=== PATIENT | male | born 1940 | race Caucasian/White ===

== ENCOUNTER 2016-10-19 17:46 | Inpatient (IN) | payer MEDICARE, OTHER ==
--- NOTE | ~2016-10-19 | EKG ---
PATIENT: CHARLES GUTIERREZ UNIT #: [id number] Ventricular Rate: 89 BPM Atrial Rate: 89 BPM P-R Interval: 138 ms QRS Duration: 120 ms Q-T Interval: 358 ms QTC Calculation(Bezet): 435 ms P [place]: 73 degrees Calculated R [place]: 92 degrees Calculated T [place]: 2 degrees Diagnosis Line: Normal sinus rhythm Diagnosis Line: Right bundle branch block Diagnosis Line: Nonspecific T wave abnormality Diagnosis Line: Abnormal ECG Diagnosis Line: When compared with ECG of 20-OCT-2016 12:32, Diagnosis Line: (unconfirmed) Diagnosis Line: Nonspecific T wave abnormality now evident in Diagnosis Line: Inferior leads Diagnosis Line: Confirmed by TAOV SIDDIQUI MD ([id number]) on Diagnosis Line: 10/21/2016 11:19:39 PM INTERPRETING MD: CHALINO
--- NOTE | ~2016-10-19 | EKG ---
PATIENT: CHARLES GUTIERREZ UNIT #: [id number] Ventricular Rate: 81 BPM Atrial Rate: 81 BPM P-R Interval: 128 ms QRS Duration: 128 ms Q-T Interval: 414 ms QTC Calculation(Bezet): 480 ms P [place]: 63 degrees Calculated R [place]: 86 degrees Calculated T [place]: 63 degrees Diagnosis Line: Normal sinus rhythm Diagnosis Line: Right bundle branch block Diagnosis Line: Marked T wave abnormality, consider anterolateral Diagnosis Line: ischemia Diagnosis Line: Abnormal ECG Diagnosis Line: When compared with ECG of 21-OCT-2016 05:39, Diagnosis Line: No significant change was found Diagnosis Line: Confirmed by TAVO SIDDIQUI MD ([id number]) on Diagnosis Line: 10/23/2016 8:49:59 AM INTERPRETING MD: CHALINO
--- NOTE | ~2016-10-19 | HP ---
Unit #: [id number] #: [id number] Patient: CHARLES GUTIERREZ [id number] [facility]. [place], [place] [address] [id number] I MR#: [id number] NAME: CHARLES GUTIERREZ ROOM: 4 Age: 76 Sex: M Admission Date: 10/19/2016 : 1940 Attending Physician: John Hinojosa M.D. Primary Care Physician: No Primary Care Physician HISTORY AND PHYSICAL HISTORY OF PRESENT ILLNESS This is a 76-year-old white male known to have a lateral wall non-ST elevated MN back in 2012. Dr. Hinojosa did his heart catheterization at that time. The patient was also, back in 2012, diagnosed with new hypertension. He also was noted to have a right bundle branch block on his EKG and hyperlipidemia. On the heart catheterization performed at that time, Dr. Hinojosa, performed a PCI and stent placed to the first diagonal branch of the LAD. He also had an unsuccessful angioplasty of the circumflex coronary artery which was found to have a 99.9% distal of the first marginal branch stenosis. The patient had been doing well up to this admission. He goes to [place] to see a commercial green building designer at the [facility] there. He used [place] state. The last time he has been was almost a year ago. He has been following a commercial green building designer there but, since his angioplasty and stenting, he has not had a stress test or another heart catheterization. The patient a couple of nights ago went to bed and just felt some discomfort in his chest. He said it felt more like a tightness. He was uncomfortable. He got a little clammy. He took a whole aspirin 325 mg. He laid back down and finally went to sleep. He got up yesterday morning feeling well and then throughout the day he was doing fair and then, in the afternoon, he started having the same substernal chest tightness. He got clammy. He took his blood pressure at home and it was a little high. He said he has a little shortness of breath with exertion but that is not always unusual. He denied any dizziness, palpitations. He denied any nausea, vomiting. He denied that the discomfort radiated up to the neck, bilateral jaw, shoulders, arms or elbow. No abdominal or back pain. In the emergency room, the patient's blood pressure was 138/84, heart rate 88, respiration 16, temperature 98.2. The patient's chest x-ray showed some opacity in the left lung base and could possibly concern for a hiatal hernia or less likely a left lower lobe cavitary process. The patient's EKG showed sinus rhythm. He does have a right bundle branch block and some nonspecific ST-T wave abnormalities in inferior anterolateral leads. His CK MB was 37.2 with troponin of 0.2 and, later, his CK MB was 27.4, troponin 2.28. This morning, his troponin is elevated to 21.69. The patient was given aspirin, nitro paste, Lovenox and admitted for further evaluation with Dr. Hinojosa. PAST MEDICAL HISTORY 1. Coronary artery disease, previous PCI and drug-eluting stent to the first diagonal branch of the LAD and unsuccessful angioplasty of the circumflex. In 05/2013, the patient had a high lateral wall non-ST elevated MN. Left ventricular cavity size normal, contractility with the anterior, anterobasal and inferior arteaga normal. Unit #: [id number] #: [id number] Patient: CHARLES GUTIERREZ 2. Right bundle branch block on EKG. 3. Hypertension. 4. Hyperlipidemia. 5. Quit smoking 1994. 6. Glaucoma. FAMILY HISTORY His mother at the age of 95 of natural causes. His father at the age of 78 from a massive stroke. His siblings are in generally well health. ALLERGIES No known drug allergies. HOME MEDICATIONS 1. Aspirin 81 mg p.o. daily. 2. Atorvastatin 80 mg a half tablet daily. 3. Metoprolol 50 mg daily. 4. Lisinopril 10 mg a half a tablet daily. 5. Omeprazole 20 mg p.o. daily. 6. Eye drops for glaucoma. REVIEW OF SYSTEMS CONSTITUTIONAL: The patient denies fever or chills. No recent weight gain, weight loss. HEENT: The patient denies headache or dizziness. No visual or hearing changes. No lymphadenopathy, thyromegaly. No difficulty swallowing. CARDIOVASCULAR: The patient denies chest pain. Chest tightness present associated with some diaphoresis. The patient denies palpitations. No increased lower extremity edema. PULMONARY: Shortness of breath with exertion which adds to his baseline. The patient denies paroxysmal nocturnal dyspnea or orthopnea. GASTROINTESTINAL: The patient denies nausea, vomiting, diarrhea, abdominal pain. NEUROLOGIC: No focal weakness. PHYSICAL EXAMINATION GENERAL APPEARANCE: Mr. Gutierrez is a 76-year-old white male in no acute respiratory distress. He is awake, alert and oriented. He is currently chest pain free. VITAL SIGNS: Blood pressure 114/73. Heart rate 76. Respirations 18. Temperature 97.8. O2 sat 98% on room air. NECK: Trachea midline. No thyromegaly or lymphadenopathy. Normal carotid upstrokes. No jugular venous distention. HEART: S1, S2. Regular rate and rhythm. No clicks, murmurs or rubs. LUNGS: Slightly diminished, otherwise, clear. ABDOMEN: Obese, soft, nontender. Positive bowel sounds present. No hepatosplenomegaly. EXTREMITIES: Pedal pulses palpable. No pedal edema. DIAGNOSTIC STUDIES LABORATORY: Glucose 105, BUN 12, creatinine 1.3, EGFR 53.4, sodium 139, potassium 4.4, chloride 108, CO2 23, calcium 8.4, magnesium 2.7, total protein 7.6, albumin 4.0, bilirubin total 0.5, AST 40, ALT 14, alkaline phosphatase 72. Fasting lipid profile: Cholesterol 152, triglycerides 193, LDL 77, HDL 38. WBC 7.3, hemoglobin 12.4, hematocrit 38.6, platelets 219. Initial cardiac enzymes: CK MB 37.2, troponin 2.02. CK MB 27.4, troponin 2.8. Repeat troponin this morning 21.69. Unit #: [id number] #: [id number] Patient: CHARLES GUTIERREZ IMAGING: Chest x-ray shows an air-containing structure in the left lung base, left paramediastinal region that raises concern for a either hiatal hernia or less likely a left lower lobe cavitary process. No acute airspace disease identified. Heart is within normal size. No pneumothorax. CARDIOVASCULAR: EKG shows normal sinus rhythm with ventricular 80 beats per minute, right bundle branch block, ST-T wave abnormality in inferior and anterolateral leads, poor R wave progression. IMPRESSION 1. Acute non-ST elevated MN. 2. History of coronary artery disease, previous lateral wall MN status post PCI and stent to the first diagonal branch of LAD and unsuccessful angioplasty of the circumflex coronary artery. 3. Hypertension. 4. Renal insufficiency, questionable new. 5. Hyperlipidemia. 6. Glaucoma. 7. Mild obesity. 8. Reformed smoker. PLAN 1. The patient has been scheduled for a heart catheterization with Dr. Hinojosa today to further evaluate his coronary artery disease and most likely some type of intervention. 2. Continue the patient on aspirin. He was started on Lovenox, therapeutic dosing, along with beta anomy, a statin. 3. We will initiate Integrilin drip per protocol. 4. Pre-cath orders per Dr. Hinojosa. The IV fluids will be started per protocol. 5. I discussed with the patient risks and benefits of the cardiac catheterization including the risk of bleeding, myocardial infarction, stroke and even . The patient verbalizes understanding and agrees to proceed. 6. On exam, there are no signs or symptoms of acute congestive heart failure. 7. The patient has also been started on an JACOBO inhibitor in addition to given a loading dose of Brilinta. 8. Further recommendations pending per Dr. Hinojosa during the heart catheterization. Dictated by Ivone Dow A.P.R.N. for Junior Reddy TD: 10/20/2016 13:28 JOB #: [id number] Unit #: [id number] #: [id number] Patient: CHALRES GUTIERREZ HISTORY AND PHYSICAL Page 1 of 1 X Ivone Dow APRN X HISTORY AND PHYSICAL
--- NOTE | ~2016-10-19 | EKG ---
PATIENT: CHARLES GUTIERREZ UNIT #: [id number] Ventricular Rate: 79 BPM Atrial Rate: 79 BPM P-R Interval: 134 ms QRS Duration: 120 ms Q-T Interval: 382 ms QTC Calculation(Bezet): 438 ms P [place]: 56 degrees Calculated R [place]: 74 degrees Calculated T [place]: 12 degrees Diagnosis Line: Normal sinus rhythm Diagnosis Line: Right bundle branch block Diagnosis Line: T wave abnormality, consider lateral ischemia Diagnosis Line: Abnormal ECG Diagnosis Line: When compared with ECG of 17-JUN-2013 05:39, Diagnosis Line: QRS axis Shifted left Diagnosis Line: ST no longer depressed in Anterior leads Diagnosis Line: Nonspecific T wave abnormality has replaced Diagnosis Line: inverted T waves in Inferior leads Diagnosis Line: Confirmed by TAVO SIDDIQUI MD ([id number]) on Diagnosis Line: 10/21/2016 11:00:55 PM INTERPRETING MD: CHALINO
--- NOTE | ~2016-10-19 | DS ---
Unit #: [id number] #: [id number] Patient: CHARLES GUTIERREZ [id number] [place], [place] [address] [id number] MR#: [id number] NAME: CHARLES GUTIERREZ ROOM: 564 Age: 76 Sex: M Admission Date: 10/19/2016 : 1940 Discharge Date: 10/22/2016 Attending Physician: John Hinojosa M.D. Primary Care Physician: No Primary Care Physician DISCHARGE SUMMARY DISCHARGE DIAGNOSES 1. Acute anterior non ST elevation myocardial infarction with peak troponin of 41.86. 2. Coronary artery disease, status post left cardiac catheterization on October 20, 2016, per Dr. Hinojosa at [facility], which revealed left main normal. Proximal left anterior descending coronary artery 95% to 99% with thrombus just distal to the first diagonal branch and proximal to the first septal domestic violence advocate. First septal domestic violence advocate with 50%. Distal half of left anterior descending coronary artery normal. First diagonal branch 50% at its ostium, widely patent stent in the proximal third of the diagonal branch. Mid section of diagonal branch shows a concentric 70% stenosis with distal vessel normal. Left circumflex total chronic occlusion with retrograde collaterals from right to left. Right coronary artery normal. Left ventricular ejection fraction 45%. Status post percutaneous coronary intervention and drug-eluting stent in the proximal left anterior descending coronary artery. 3. Abnormal chest x-ray on October 19, 2016, which revealed a left lung base opacity which appears to represent an air-containing structure. Etiology unclear but concern for either a hiatal hernia or less likely a left lower lobe cavitary process. Needs CT of the chest or upper gastrointestinal evaluation on a non-emergent basis. 4. Hypertension. 5. Hyperlipidemia. 6. Old right bundle branch block. 7. Glaucoma. DISCHARGE MEDICATIONS 1. Lipitor 80 mg p.o. nightly. 2. Lisinopril 2.5 mg p.o. daily. 3. Aspirin 81 mg p.o. daily. 4. Brilinta 90 mg p.o. b.i.d. 5. Omeprazole 20 mg p.o. daily. 6. Nitroglycerin 0.4 mg sublingual p.r.n. 7. Coreg 3.125 mg p.o. b.i.d. HOSPITAL COURSE This is a 76-year-old white male known to Dr. Hinojosa with a history of a lateral wall myocardial infarction in 2012. The patient underwent placement of a stent in the first diagonal of the LAD. There was an unsuccessful angioplasty of the left circumflex. Additional past medical history includes: Hypertension, hyperlipidemia, old right bundle branch block, and reformed tobacco abuse. The patient presented to emergency department on October 19, 2016, at an outside facility with complaints of Unit #: [id number] #: [id number] Patient: CHARLES GUTIERREZ chest pain. Cardiac enzymes were elevated. He was transferred to [facility] for further management. EKG revealed sinus rhythm with a right bundle branch block and nonspecific ST-T wave changes. He was started on aspirin, topical nitrates, and full-dose Lovenox. He was admitted for further evaluation and management. He was started on Integrilin drip. He was recommended for cardiac catheterization and was started on IV fluids per protocol. He was also given an JACOBO inhibitor as well as a loading dose of Brilinta. He was taken for cardiac catheterization on October 20, 2016. Coronary angiography revealed a 95% to 99% stenosis in the proximal LAD which was the culprit vessel. The first diagonal showed 50% in the ostium. There was a widely patent stent in the proximal third of the diagonal branch. The mid section of the diagonal branch had a 70% stenosis, the distal vessel normal. Left circumflex was a total chronic occlusion. Right coronary artery was normal. Ejection fraction was 45%. A 3.0 x 32 mm Synergy drug-eluting stent was successfully deployed in the proximal LAD reducing stenosis to zero percent. There was good runoff present and ZAINAB-3 flow post procedure. The patient was transferred to telemetry for further observation. Angio CK-MB were trended. Cardiac markers improved. There were no complaints of chest pain after the procedure. The patient has ambulated without complaints of chest pain or shortness of breath. Right groin is soft without hematoma. Blood pressure was borderline low today with a systolic reading in the low 90s. Some of his medications were held. Due to borderline low blood pressure, his beta naomy and JACOBO inhibitor have been decreased. He is currently stable and will be discharged home today. He has been instructed to follow up with his primary care provider as well as Dr. Hinojosa as an outpatient. Post cath instructions have been provided. The importance of continuing dual-antiplatelet therapy for a minimum of 12 months has been discussed with the patient and his family and they both verbalize understanding. A co-pay card has been provided for Brilinta. The cost of Brilinta was assessed yesterday with the [facility]. DIAGNOSTIC STUDIES LABORATORY: White count 7.8, hemoglobin 11.5, hematocrit 35.8, platelets 200,000. Sodium 139, potassium 3.7, chloride 107, CO2 of 23, BUN 15, creatinine 1.4, glucose 99. Magnesium 2.1. AST 40, ALT 14, alkaline phosphatase 72. CK total 384, MB 10.5, percentage MB 2.7. Troponin peak 41.86, then 17.5, 21.69, and 9.99. BNP 432. Total cholesterol 150, triglycerides 121, LDL 79, HDL 47. INR 1. IMAGING: Chest x-ray reveals an air-containing structure in the left lung base with unclear etiology but with concern for hiatal hernia or less likely a left lower lobe cavitary process. Patient's previous study in February 2013 did demonstrate a second density overlying the cardiac outline and I tend to favor that the process was present in 2012 but now is air containing. If unavailable, further evaluation with chest CT or upper GI on a non-emergent basis may be of benefit. CARDIOVASCULAR: EKG reveals sinus rhythm with a ventricular rate of 76 beats per minute, nonspecific ST-T wave changes. Right bundle branch block. PHYSICAL EXAMINATION VITAL SIGNS: Temperature 98.2, pulse 79, blood pressure 113/62. CONSTITUTIONAL: This is a 76-year-old white male in no acute distress. SKIN: Warm and dry. NECK: Supple. No jugular vein distention. No hepatojugular reflux. Normal carotid upstrokes. No carotid bruits auscultated. Unit #: [id number] #: [id number] Patient: CHARLES GUTIERREZ HEART: S1, S2. Regular rate and rhythm. No murmurs, rubs, or gallops. LUNGS: Bilateral breath sounds have good air entry throughout lung newman. Respirations even and nonlabored. No rales, rhonchi, or wheezes. ABDOMEN: Soft, nontender, nondistended. Positive bowel sounds auscultated x4 quadrants. No ascites noted. EXTREMITIES: Bilateral lower extremities have no pretibial pitting edema. DP and PT pulses 2+. Capillary refill less than 3 seconds. Right groin is soft without hematoma. DISCHARGE INSTRUCTIONS 1. The patient will be discharged home today. 2. Followup with primary care provider in one to two weeks. 3. Followup with Dr. Hinojosa on November 17, 2016, at 12:30 p.m. 4. Post cath instructions provided. 5. Dual-antiplatelet therapy for a minimum of 12 months. Co-pay card provided for Brilinta. Cost evaluated yesterday with [facility]. 6. Cardiac rehab consulted. 7. The patient should be considered for a chest CT or upper GI on a non-emergent basis due to opacity in the left lung which appeared to be an air-containing structure either from a hiatal hernia or less likely a left lower lobe cavitary process. Dictated by... Anca Leigh APRN for Junior Mustafa TD: 10/24/2016 09:41 JOB #: [id number] DISCHARGE SUMMARY Page 1 of 1 X X DISCHARGE SUMMARY
--- NOTE | ~2016-10-19 | EKG ---
PATIENT: CHARLES GUTIERREZ UNIT #: [id number] Ventricular Rate: 78 BPM Atrial Rate: 78 BPM P-R Interval: 136 ms QRS Duration: 136 ms Q-T Interval: 424 ms QTC Calculation(Bezet): 483 ms P [place]: 60 degrees Calculated R [place]: 81 degrees Calculated T [place]: 26 degrees Diagnosis Line: Normal sinus rhythm with sinus arrhythmia Diagnosis Line: Right bundle branch block Diagnosis Line: Abnormal ECG Diagnosis Line: When compared with ECG of 17-JUN-2013 05:39, Diagnosis Line: QRS axis Shifted left Diagnosis Line: ST no longer depressed in Anterior leads Diagnosis Line: T wave inversion no longer evident in Inferior Diagnosis Line: leads Diagnosis Line: T wave inversion no longer evident in Lateral Diagnosis Line: leads Diagnosis Line: QT has lengthened Diagnosis Line: Confirmed by OSITO YIP, STEFANIE ([id number]) on Diagnosis Line: 10/26/2016 3:36:56 PM INTERPRETING MD: BRYAN
--- NOTE | ~2016-10-19 | CR72 ---
[facility]. [facility] A Service of [facility] RADIOLOGY TEXT RESULTS PATIENT: CHARLES GUTIERREZ LOCATION: [facility] 564-01 : 41 UNIT #: [id number] AGE: [address]: John Hinojosa MD SEX: M ORDER DR: [id number] [address] [address] [id number] I MR#: [id number] #: [id number] NAME: CHARLES GUTIERREZ : 1940 SEX: M STUDY DATE/TIME: 10/19/2016 16:54 UNIT: SEDOF ROOM: [facility] STUDY DESCRIPTION: CR Chest Single View Portable Attending Physician: John Hinojosa M.D. Ordering Physician: Vivian Damon M.D. Primary Care Physician: No Primary Care Physician MEDICAL IMAGING REPORT This report is preliminary unless electronic signature is present. EXAM Portable chest HISTORY 76-year-old male with chest pain, tightness since last night. Chronic smoker, COMPARISON 06/14/2013 FINDINGS AP portable view of the chest demonstrates opacity in the left lung base which appears to represent an air containing structure in the left lung base, left paramediastinal region. Etiology unclear but raises concern for either a hiatal hernia or, less likely, left lower lobe cavitary process. Patient's prior study in May 2013 did demonstrate a second density overlying the cardiac outline and I tend to favor that the process was present in 2012, but now is air containing. Correlation with any outside studies and/or clinical history may be helpful. If unavailable, further evaluation with chest CT or upper GI on a nonemergent basis may be of benefit. No acute airspace disease identified. Heart size within normal limits. Upper mediastinum unremarkable. No pneumothorax. Dictated by... Tala Chan M.D. THIS IS AN ELECTRONICALLY VERIFIED REPORT Tala Chan M.D. at 10/24/2016 1:20 PM MEG/[facility] A Service of [facility] RADIOLOGY TEXT RESULTS PATIENT: CHARLES GUTIERREZ LOCATION: [facility] 564-01 : [birth year] UNIT #: [id number] AGE: [address]: John Hinojosa MD SEX: M ORDER DR: TD: 10/19/2016 19:24 JOB #: [id number] MEDICAL IMAGING REPORT Page 1 of 1
--- NOTE | ~2016-10-19 | EKG ---
PATIENT: CHARLES GUTIERREZ UNIT #: [id number] Ventricular Rate: 76 BPM Atrial Rate: 76 BPM P-R Interval: 96 ms QRS Duration: 122 ms Q-T Interval: 406 ms QTC Calculation(Bezet): 456 ms P [place]: 62 degrees Calculated R [place]: 83 degrees Calculated T [place]: 74 degrees Diagnosis Line: Sinus rhythm with short MA Diagnosis Line: Right bundle branch block Diagnosis Line: Low voltage QRS Diagnosis Line: Abnormal ECG Diagnosis Line: When compared with ECG of 20-OCT-2016 07:32, Diagnosis Line: (unconfirmed) Diagnosis Line: Nonspecific T wave abnormality no longer evident Diagnosis Line: in Inferior leads Diagnosis Line: Confirmed by TAVO SIDDIQUI MD ([id number]) on Diagnosis Line: 10/21/2016 11:05:34 PM INTERPRETING MD: CHALINO
[2016-10-19 17:07] LABS: BASOPHIL# 0.1 X10e3 (0-0.3); BASOPHIL% 0.7 % (0-2.5); EOSINOPHIL# 0.3 X10e3 (0-0.7); EOSINOPHIL% 2.8 % (0.0-7.0); HEMATOCRIT 40.8 % (38.0-50.0); HEMOGLOBIN 13.4 gm/dL (13.0-16.0); LYMPHOCYTE# 1.4 X10e3 (1.0-3.5); LYMPHOCYTE% 15.3 % (17.0-45.0); MEAN CELL VOLUME 86.7 FL (83-96); MEAN CORPUSCULAR HEMOGLOBIN 28.4 PG (28-34); MEAN CORPUSCULAR HGB CONC 32.8 g/dL (30-36); MEAN PLATELET VOLUME 7.8 FL (6.5-11.5); MONOCYTE# 0.7 X10e3 (0-1.0); MONOCYTE% 7.7 % (3.0-12.0); NEUTROPHIL# 6.7 X10e3 (1.5-7.1); NEUTROPHIL% 73.5 % (40-75); PLATELET COUNT 256 X10e3 (140-420); RED BLOOD COUNT 4.71 X10e (3.90-5.60); RED CELL DISTRIBUTION WIDTH 15.7 % (11.0-15.5); WHITE BLOOD COUNT 9.1 X10e3 (4.0-10.5)
[2016-10-19 17:08] LABS: DIFF IND NO
[2016-10-19 17:15] LABS: PROTHROMBIN TIME (PATIENT) 11.5 SECONDS (9.5-12.4)
[2016-10-19 17:23] LABS: POC - CKMB 37.2 ng/mL (0.0-7.9); POC - TROPONIN 2.02 ng/mL (<=0.05)
[2016-10-19 17:23] LABS: PARTIAL THROMBOPLASTIN TIME 27.7 SECONDS (25.6-38.1)
[2016-10-19 17:24] LABS: BILIRUBIN, DIRECT 0.1 mg/dL (0.0-0.2); BILIRUBIN,INDIRECT 0.4 mg/dL (0.0-0.9); BILIRUBIN,TOTAL 0.5 mg/dL (0.2-2.0); CALCIUM SERUM 8.6 mg/dL (8.4-10.2); CREATININE SERUM 1.4 mg/dL (0.6-1.4); GLOM FILT RATE Estimated 48.8 mL/min (>60); MAGNESIUM 2.2 mg/dL (1.6-3.0); PROTEIN TOTAL SERUM 7.6 g/dL (6.0-8.3)
[~2016-10-19 17:46] MED LIST: ASPIRIN81 MG PO; CLOPIDOGREL75 MG PO; COSOPT1 UNI1 OD; LATANOPROST2.5 ML OD; LIPITOR40 MG PO; LISINOPRIL5 MG PO; METOPROLOL SUCC25 MG PO; NITROQUICK0.4 MG SL; ZANTAC150 M1
[2016-10-19 18:42] LABS: POC - CKMB 27.4 ng/mL (0.0-7.9); POC - TROPONIN 2.28 ng/mL (<=0.05)
[2016-10-20 06:30] LABS: BASOPHIL% 0.6 % (0-2.5); EOSINOPHIL# 0.2 X10e3 (0-0.7); HEMATOCRIT 38.6 % (38.0-50.0); HEMOGLOBIN 12.4 gm/dL (13.0-16.0); LYMPHOCYTE# 1.8 X10e3 (1.0-3.5); LYMPHOCYTE% 24.1 % (17.0-45.0); MEAN CELL VOLUME 86.7 FL (83-96); MEAN CORPUSCULAR HEMOGLOBIN 27.8 PG (28-34); MEAN PLATELET VOLUME 8.1 FL (6.5-11.5); MONOCYTE# 0.9 X10e3 (0-1.0); MONOCYTE% 11.7 % (3.0-12.0); NEUTROPHIL# 4.4 X10e3 (1.5-7.1); NEUTROPHIL% 60.6 % (40-75); PLATELET COUNT 219 X10e3 (140-420); RED BLOOD COUNT 4.45 X10e (3.90-5.60); RED CELL DISTRIBUTION WIDTH 15.7 % (11.0-15.5); WHITE BLOOD COUNT 7.3 X10e3 (4.0-10.5)
[2016-10-20 06:35] LABS: DIFF IND NO
[2016-10-20 06:57] LABS: PARTIAL THROMBOPLASTIN TIME 27.1 SECONDS (23.5-31.3); PROTHROMBIN TIME (PATIENT) 10.2 SECONDS (9.6-11.5)
[2016-10-20 07:30] LABS: BUN/CREATININE RATIO 9.23; CALCIUM SERUM 8.4 mg/dL (8.4-10.2); CREATININE SERUM 1.3 mg/dL (0.6-1.4); GLOM FILT RATE Estimated 53.4 mL/min (>60); MAGNESIUM 2.1 mg/dL (1.6-3.0); POTASSIUM 4.4 mmol/L (3.5-5.1)
[2016-10-20] MEDS ORDERED: ATORVASTATIN CA80 MG PO (11:12)
[2016-10-20] MEDS ORDERED: METOPROLOL TAR25 MG DOB (11:13)
[2016-10-20] MEDS ORDERED: LISINOPRIL10 MG PO (11:14)
[2016-10-20] MEDS ORDERED: OMEPRAZOLE20 M2 PO (11:14)
[2016-10-20 16:23] LABS: HEMATOCRIT 39.7 % (38.0-50.0); HEMOGLOBIN 12.7 gm/dL (13.0-16.0); MEAN CELL VOLUME 86.9 FL (83-96); MEAN CORPUSCULAR HEMOGLOBIN 27.7 PG (28-34); MEAN CORPUSCULAR HGB CONC 31.9 g/dL (30-36); MEAN PLATELET VOLUME 7.9 FL (6.5-11.5); RED BLOOD COUNT 4.57 X10e (3.90-5.60); RED CELL DISTRIBUTION WIDTH 15.9 % (11.0-15.5); WHITE BLOOD COUNT 8.2 X10e3 (4.0-10.5)
[2016-10-20 20:29] LABS: ANGIO MB 61.9 ng/ml
[2016-10-21 03:45] LABS: BASOPHIL# 0.1 X10e3 (0-0.3); BASOPHIL% 0.8 % (0-2.5); EOSINOPHIL# 0.1 X10e3 (0-0.7); HEMATOCRIT 38.5 % (38.0-50.0); HEMOGLOBIN 12.2 gm/dL (13.0-16.0); LYMPHOCYTE# 1.7 X10e3 (1.0-3.5); LYMPHOCYTE% 17.3 % (17.0-45.0); MEAN CELL VOLUME 86.3 FL (83-96); MEAN CORPUSCULAR HEMOGLOBIN 27.5 PG (28-34); MEAN CORPUSCULAR HGB CONC 31.8 g/dL (30-36); MEAN PLATELET VOLUME 7.9 FL (6.5-11.5); MONOCYTE# 1.6 X10e3 (0-1.0); MONOCYTE% 15.9 % (3.0-12.0); NEUTROPHIL# 6.4 X10e3 (1.5-7.1); PLATELET COUNT 225 X10e3 (140-420); RED BLOOD COUNT 4.46 X10e (3.90-5.60); RED CELL DISTRIBUTION WIDTH 15.5 % (11.0-15.5); WHITE BLOOD COUNT 9.9 X10e3 (4.0-10.5)
[2016-10-21 03:47] LABS: DIFF IND NO
[2016-10-21 04:25] LABS: BUN/CREATININE RATIO 13.33; CALCIUM SERUM 8.4 mg/dL (8.4-10.2); CREATININE SERUM 1.2 mg/dL (0.6-1.4); GLOM FILT RATE Estimated 58.8 mL/min (>60); POTASSIUM 4.3 mmol/L (3.5-5.1)
[2016-10-21 04:46] LABS: ANGIO %MB 5.1 % (0.0-4.0)
[2016-10-22 06:43] LABS: HEMATOCRIT 35.8 % (38.0-50.0); HEMOGLOBIN 11.5 gm/dL (13.0-16.0); MEAN CORPUSCULAR HEMOGLOBIN 27.9 PG (28-34); MEAN PLATELET VOLUME 8.5 FL (6.5-11.5); RED BLOOD COUNT 4.12 X10e (3.90-5.60); RED CELL DISTRIBUTION WIDTH 15.5 % (11.0-15.5); WHITE BLOOD COUNT 7.8 X10e3 (4.0-10.5)
[2016-10-22 07:36] LABS: BUN/CREATININE RATIO 10.71; CALCIUM SERUM 8.3 mg/dL (8.4-10.2); CREATININE SERUM 1.4 mg/dL (0.6-1.4); GLOM FILT RATE Estimated 48.8 mL/min (>60); POTASSIUM 3.7 mmol/L (3.5-5.1)
[2016-10-22 07:59] LABS: %MB 2.7 % (0.0-4.0); MB 10.5 ng/ml
[2016-10-22] MEDS ORDERED: ASPIRIN81 MG PO (15:52)
[2016-10-22] MEDS ORDERED: ZESTRIL2.5 M1 PO (15:53)
[2016-10-22] MEDS ORDERED: BRILINTA90 MG PO (15:53)
[2016-10-22] MEDS ORDERED: NITROGLYCERIN0.4 MG SL (15:54)
[2016-10-22] MEDS ORDERED: ATORVASTATIN CA80 MG PO (15:58)
[2016-10-22] MEDS ORDERED: COREG3.125 MG PO (15:58)
== END 2016-10-22 17:15 | disposition home or self-care (01) | DRG 247 ==
LOC: SED 17:46 → SEDOF 17:56 → C5C 18:00
PROVIDERS: Internal Medicine Cardiovascular Disease; Student in an Organized Health Care Education/Training Program
PROC: 027034Z Dilation of Coronary Artery, One Artery with Drug-eluting Intraluminal Device, Percutaneous Approach (ICD-10-PCS; principal; 2016-10-20)
PROC: 4A023N7 Measurement of Cardiac Sampling and Pressure, Left Heart, Percutaneous Approach (ICD-10-PCS; 2016-10-20)
PROC: B211YZZ Fluoroscopy of Multiple Coronary Arteries using Other Contrast (ICD-10-PCS; 2016-10-20)
PROC: B215YZZ Fluoroscopy of Left Heart using Other Contrast (ICD-10-PCS; 2016-10-20)
DX: I21.4 Non-ST elevation (NSTEMI) myocardial infarction (principal); I45.10 Unspecified right bundle-branch block; I10 Essential (primary) hypertension; I25.10 Atherosclerotic heart disease of native coronary artery without angina pectoris; E78.5 Hyperlipidemia, unspecified; I25.2 Old myocardial infarction; Z95.5 Presence of coronary angioplasty implant and graft; Z87.891 Personal history of nicotine dependence; Z98.42 Cataract extraction status, left eye; Z82.3 Family history of stroke; Z79.82 Long term (current) use of aspirin; E66.9 Obesity, unspecified
CPT/HCPCS: 71010; 80048; 80061; 80076; 82550; 82553; 83735; 83880; 84484; 85025; 85027; 85347; 85610; 85730; 93005; 94760; 96372; 99291; C1725; C1769; C1874; C1887; C1894; J0461; J1327; J1644; J1650; J2250; J2270; J2370; J2405; J3010